=== PATIENT | male | born 1975 | race Caucasian/White ===

== ENCOUNTER 2025-09-03 07:12 | Emergency (ER) | payer BC, SELFPAY ==
[2025-09-03] VITALS (30 sets, daily range): BP systolic 142–192; BP diastolic 93–116; PULSE 54–63; TEMP 36.7; O2SAT 96–99; BMI 32.1
--- NOTE | 2025-09-03 07:22 | ED_ITS ---
HPI HPI - General Adult General Chief complaint: Headache Stated complaint: HEADACHE L ARM PAIN NOSE BLEED Time Seen by Provider: 09/03/25 07:19 Related Data Home Medications ?Medication ?Instructions ?Recorded ?Confirmed gabapentin 600 mg tablet 600 mg PO HS 09/03/25 Previous Rx's ?Medication ?Instructions ?Recorded amlodipine 5 mg tablet (Norvasc) 5 mg PO DAILY #30 tab s 09/03/25 Allergies Allergy/AdvReac Type Severity Reaction Status Date / Time No Known Drug Allergies Allergy Verified 09/03/25 07:19 Opioid HPI Opioid Management Most Recent Opioid Data: Last Pain Scale 5 Today, 08:05 Last ED Pain Assessment Today, 08:05 Last MAR Pain Assessment Today, 07:37 PFSH PFSH Social History Little interest or pleasure in doing things: not at all Feeling down, depressed, or hopeless: not at all Exam Constitutional Vital Signs, click to edit/add: Last Vital Signs Temp 98.1 F 09/03/25 07:20 Pulse 63 09/03/25 10:20 Resp 16 09/03/25 10:20 BP 142/93 H 09/03/25 10:15 Pulse Ox 97 09/03/25 10:20 O2 Del Method Room Air 09/03/25 08:05 Course Vital Signs Vital signs: Vital Signs Temperature 98.1 F 09/03/25 07:20 Pulse Rate 61 09/03/25 07:20 Respiratory Rate 16 09/03/25 07:20 Blood Pressure 182/108 H 09/03/25 07:20 Pulse Oximetry 98 09/03/25 07:20 Oxygen Delivery Method Room Air 09/03/25 07:20 Temperature 98.1 F 09/03/25 07:20 Pulse Rate 63 09/03/25 10:20 Respiratory Rate 16 09/03/25 10:20 Blood Pressure 142/93 H 09/03/25 10:15 Pulse Oximetry 97 09/03/25 10:20 Oxygen Delivery Method Room Air 09/03/25 08:05 Medical Decision Making MDM Narrative Medical decision making narrative: His workup is negative. The patient was given IV hydralazine, 10 mg twice, which resulted in good improvement of his blood pressure. He is discharged home on Norvasc and will follow-up promptly with his PCP for blood pressure recheck. Treatment diagnosis and follow-up were discussed with the patient and his . Differential Diagnosis Differential Diagnosis: Hypertension, renal failure Lab Data Lab results reviewed: Yes I reviewed the patient's lab results Labs: Lab Results 09/03/25 Range/Units 07:30 WBC 6.3 (4.0-11.0) 10^3/uL RBC 4.90 (4.70-6.10) 10^6/uL Hgb 15.4 (14.0-18.0) g/dL Hct 42.8 (42.0-54.0) % MCV 87.3 (80.0-94.0) fL MCH 31.4 (25.9-34.0) pg MCHC 36.0 H (29.9-35.2) g/dL RDW 12.4 (11.0-15.0) % Plt Count 256 (150-450) 10^3/uL MPV 10.0 (9.5-13.5) fL Neut % (Auto) 60.6 (43.0-75.0) % Lymph % (Auto) 26.8 (20.5-60.0) % [place] % (Auto) 10.2 (1.7-12.0) % Eos % (Auto) 1.9 (0.9-7.0) % Baso % (Auto) 0.3 (0.2-2.0) % Neut # (Auto) 3.8 (1.4-6.5) 10^3/uL Lymph # (Auto) 1.7 (1.2-3.8) 10^3/uL [place] # (Auto) 0.6 (0.3-0.8) 10^3/uL Eos # (Auto) 0.1 (0.0-0.7) 10^3/uL Baso # (Auto) 0.0 (0.0-0.1) 10^3/uL Abs Immat Gran (auto) 0.01 (0.00-0.03) 10^3/uL Imm/Tot Granulo (auto) 0.2 (0.0-0.5) % Sodium 142 (136-145) mmol/L Potassium 4.0 (3.5-5.1) mmol/L Chloride 106 (98-107) mmol/L Carbon Dioxide 26.4 (21.0-32.0) mmol/L Anion Gap 13.6 BUN 18.0 (7.0-18.0) mg/dL Creatinine 1.13 (0.70-1.30) mg/dL Est GFR ( Amer) >60 (>=60 mL/min/1.73m^2) Est GFR (Non-Af Amer) >60 (>=60 mL/min/1.73m^2) BUN/Creatinine Ratio 15.9 Glucose 111 H (74-106) mg/dL Calcium 8.7 (8.5-10.1) mg/dL ECG Data Attestation: I personally reviewed and interpreted this ECG as follows: (EKG on my interpretation shows sinus rhythm with rate 59 and no acute change.) Critical Care Time Critical Care Time Critical Care Time: Yes Total Critical Care Time: 35 Attestation: Due to the high probability of sudden and clinically significant deterioration in the patient's condition he/she required the highest level of my preparedness to intervene urgently I provided critical care time including documentation time, medication orders and management, reevaluation, vital sign assessment, ordering and reviewing of lab tests, ordering and reviewing of x-ray studies, and admission orders. Aggregate critical care time is 35 minutes including only time during which I was engaged in work directly related to his/her care and did not include time spent treating other patients simultaneously. Discharge Plan Discharge Chief Complaint: Headache Clinical Impression: Hypertension Patient Disposition: Home, Self-Care Time of Disposition Decision: 10:37 Condition: Good Mode of Transportation: Private Vehicle Prescriptions / Home Meds: New amlodipine [Norvasc] 5 mg tablet 5 mg PO DAILY Qty: 30 0RF No Action gabapentin 600 mg tablet 600 mg PO HS Print Language: Slovak Instructions: Hypertension (ED) Additional Instructions: Follow-up promptly with your PCP for blood pressure recheck. Referrals: ALEXIS CHRISTIANSON [Primary Care Provider, Family Practice] - 1 week
--- NOTE | 2025-09-03 07:30 | ECG_ITS ---
[facility] Test Date: 2025-09-03 Pat Name: Raul Machado Department: Room: - Gender: Male Rig Supervisor: : 1975 Requested By: Order Number: [id number] Reading MD: ALEXIS ANDRE Measurements Intervals [place] Rate: 59 P: 46 PA: 160 QRS: 7 QRSD: 94 T: 27 QT: 418 QTc: 418 Interpretive Statements 1100 Sinus rhythm 4068 Nonspecific Twave abnormality 9130 borderline ECG No previous ECG available for comparison Electronically Signed On 09-03-2025 15:19:46 EST by ALEXIS ANDRE
[2025-09-03] MEDS: KETOROLAC TROMETHAMINE 30 MG/ML VIAL IVP (07:37)
[2025-09-03 07:48] LABS: Hematocrit 42.8 % (42.0-54.0); Hemoglobin 15.4 g/dL (14.0-18.0); Immature Granulocytes Abs Auto 0.01 10^3/uL (0.00-0.03); Immature Granulocytes Pct Auto 0.2 % (0.0-0.5); Lymphocytes Absolute Auto 1.7 10^3/uL (1.2-3.8); Mean Corpuscular HGB Conc 36.0 g/dL (29.9-35.2); Mean Corpuscular Hemoglobin 31.4 pg (25.9-34.0); Mean Corpuscular Volume 87.3 fL (80.0-94.0); Platelet Count 256 10^3/uL (150-450); Red Blood Count 4.90 10^6/uL (4.70-6.10); White Blood Count 6.3 10^3/uL (4.0-11.0)
[2025-09-03] MEDS: HYDRALAZINE HCL 20 MG/ML VIAL 10 MG IVP ×2 (07:56→09:42)
--- OUTSIDE RECORDS SUMMARY | 2025-09-03 07:59 | XMS_ITS | Clinical Summary ---
Author Organization [facility] Healthcare Address [address] [place] [address] Care Team Providers Care Fisher Trawl Line Name Role Phone Eamon Acevedo DO Primary Care Provider [phone] Eamon Young DO Unavailable [phone] Allergies No known active allergies Medications MedicationSigDispense QuantityRefillsLast FilledStart DateEnd DateStatus gabapentin (Neurontin) 600 MG tablet Take 600 mg by mouth at vuvtwtf6105/01/2024ctive cephalexin (Keflex) 500 MG capsule Indications:Basal cell carcinoma (BCC) of right foreheadTake 1 capsule, by mouth, bid, 10 days 20 capsule 07/25/2024ctive Active Problems ProblemNoted DateDiagnosed DateImpairment of pnynyqu57/16/2024Primary insomnia 05/25/20242869Ducafupxttnb47/26/2019Obesity, Class I, BMI 30-34.9007/05/2019 Herniation of intervertebral disc of lumbar spine06/13/2019 Overview (05/25/2024): Added automatically from request for surgery [id number] Social History Tobacco UseTypesPacks/DayYears UsedDateSmoking Tobacco: NeverSmokeless Tobacco: Never Tobacco Cessation:Counseling Given: Not Answered Alcohol UseStandard Drinks/WeekCommentsYes0 (1 standard drink = 0.6 oz pure alcohol)Sex and Gender InformationValueDate RecordedSex Assigned at BirthNot on fileLegal IdoJqin6412/22/2022 6:36 PM EDTGender IdentityNot on fileSexual OrientationNot on file Last Filed Vital Signs Vital SignReadingTime TakenCommentsBlood Bdfplpxo252/9010 9:03 AM EDT Yrcmm626805/25/2024 2:52 PM EDTTemperature--Respiratory Rate--Oxygen Tezrecrtcv54% 05/25/2024 2:52 PM EDTInhaled Oxygen Concentration--Jbplnm109 kg (237 lb) 08/07/2024 2:40 PM WRARizqlq141.3 cm (5' 11 )08/07/2024 2:40 PM EDTBody Mass Index33.0508/07/2024 2:40 PM EDT Plan of Treatment DateTypeDepartmentCare Team (Latest Contact Info)Ryldhiigtel18/25/2025 11:00 AM ESTOffice Visit [facility] [address] [place] [phone] Eamon Acevedo DO [address] [place], [place] [id number] 12/05/2025 4:00 PM ESTOffice Visit [facility] [address] [place] [address] Radha Baltazar MD [address] [place], [place] [id number] Health MaintenanceDue DateLast DoneCommentsCT Uzileunuatlq1976FIT-DNA 1975FIT1975FOBT1975 5647Gofjknqzslfwu1976COVID-19 Vaccine ( season)5001/20/2021, 12/30/2020Influenza Vaccine (#1) 5544Shbbnuelvxe69, 08/03/2019Colorectal Cancer Screening 08/03/2029Pneumococcal Vaccine: Pediatrics (0 to 5 Years) and At-Risk Patients (6 to 64 Years)Aged OutNo longer eligible based on patient's age to complete this topic Insurance Care Teams Team MemberRelationshipSpecialtyStart DateEnd Date Eamon Acevedo DO [address] [place] [address] PCP - GeneralFamily Medicine02/15/23 Eamon Young DO [address] [place] [address] Iudcyowqjfnwkf39/17/24
--- OUTSIDE RECORDS SUMMARY | 2025-09-03 07:59 | XMS_ITS | Clinical Summary ---
Author Organization [facility] tem Address [facility] [id number] [address] [place] [address] Care Team Providers Care Supervisor Tunnel Heading Name Role Phone Eamon Acevedo DO Primary Care Provider [phone] Allergies No known active allergies Medications MedicationSigDispense QuantityRefillsLast FilledStart DateEnd DateStatus oxyCODONE (OXY-IR) 5 mg capsule Take 5 mg by mouth every 6 (six) hours as needed for pain.Active ibuprofen (ADVIL,MOTRIN) 800 mg tablet Take 1 tablet (800 mg total) by mouth every 8 (eight) hours as needed for pain. 30 tablet 6110/21/2018Active Active Problems ProblemNoted DateDiagnosed DateDisplacement of lumbar intervertebral disc 06/13/2019 Overview (06/13/2019): Added automatically from request for surgery [id number] Lumbosacral disc vtpmlfzofx80/04/2019 Overview (06/13/2019): Added automatically from request for surgery [id number] Social History Tobacco UseTypesPacks/DayYears UsedDateSmoking Tobacco: NeverSmokeless Tobacco: NeverAlcohol UseStandard Drinks/WeekCommentsYes1 (1 standard drink = 0.6 oz pure alcohol)ChildcareAnswerDate UxrfhdqpFjcrqsujbZsxgeyb87/09/2019EmploymentAnswer Date TnmdldvzEkzltealpmTwvqfmp11/09/2019Purpose - LifeAnswerDate RecordedPurpose and direction in fyekYybzdrz57/11/2021Sex and Gender InformationValueDate RecordedSex Assigned at BirthNot on fileLegal DmhBmhm7905/18/2019 2:21 PM EDT Gender IdentityNot on fileSexual OrientationNot on file Last Filed Vital Signs Vital SignReadingTime TakenCommentsBlood Xklzvctn794/9008/21/2019 10:28 AM EST Xcign792208/21/2019 10:28 AM ZHKAvayvybrndt93.4 ??C (97.6 ??F)06/22/2019 7:11 AM EDTRespiratory Kaoh732510/21/2018 10:28 AM ESTOxygen Dcnmjobskq605%06/22/2019 7:50 AM EDTInhaled Oxygen Concentration--Wqzpvn151 kg (227 lb)07/11/2019 8:07 AM EDT Ethldt345.3 cm (5' 11 )07/11/2019 8:07 AM EDTBody Mass Index31.6607/11/2019 8:07 AM EDT Plan of Treatment Health MaintenanceDue DateLast DoneCommentsDepression Jknpjicpl59/14/1988Tobacco Zwxrmuwrp48/14/1988Adult BMI Cypnphaur56/14/1994DTaP,Tdap and Td Vaccines (1 - Tdap)02/20/1995Influenza Oyafqnj9906/10/2025 Medical Devices Not on file Insurance Care Teams Team MemberRelationshipSpecialtyStart DateEnd Date Eamon Acevedo DO [address] [place] [address] PCP - GeneralFamily Bjiycfnh36/2/19
--- OUTSIDE RECORDS SUMMARY | 2025-09-03 07:59 | XMS_ITS | Clinical Summary ---
Author Organization [facility] Address [address] [place] [id number] Care Team Providers Care Quotation Clerk Name Role Phone Eamon Acevedo DO Primary Care Provider [phone] Allergies No known active allergies Medications MedicationSigDispense QuantityRefillsLast FilledStart DateEnd DateStatus gabapentin (NEURONTIN) 600 mg tablet Indications:Chronic left-sided low back pain with left-sided sciaticaTake 1 tablet by mouth daily at bedtime. 30 tablet 11011/06/0721576Active Active Problems ProblemNoted DateDiagnosed CfnhJrzmrwqltmmc78/26/2019Obesity, Class I, BMI 30-34.9007/05/2019 Social History Tobacco UseTypesPacks/DayYears UsedDateSmoking Tobacco: NeverSmokeless Tobacco: NeverPHQ-2AnswerDate RecordedPHQ-2 gyyhk3425Area Deprivation IndexAnswer Date RecordedNational Score (1-100), lower number is lower ahvx800110/17/2023State Score (1-10), lower number is lower yasy6014Data from: https://www.neighborhoodatlas.medicine.[facility].edu/. Last address used for [address] [facility]10/17/2023Sex and Gender InformationValueDate Recorded Sex Assigned at BirthNot on fileLegal WpgOphg7606/26/2019 7:48 AM EDTGender IdentityNot on fileSexual OrientationNot on file Last Filed Vital Signs Vital SignReadingTime TakenCommentsBlood Fxyoswgb556/9108 10:55 AM EDT Lwsza962806/04/2021 10:55 AM ZAHUbaqrciyquy32.6 ??C (97.9 ??F)07/05/2019 1:58 PM EDTRespiratory Sgga360506/04/2021 10:55 AM EDTOxygen Iwegrpqhhm53%07/05/2019 1:58 PM EDTInhaled Oxygen Concentration--Vckxnh710 kg (236 lb)06/04/2021 10:55 AM EDT Oqwwed899.3 cm (5' 11 )06/04/2021 10:55 AM EDTBody Mass Index32.9206/04/2021 10:55 AM EDT Plan of Treatment Health MaintenanceDue DateLast DoneCommentsAnxiety Cglzwdupq94/14/1994Depression Afzvejeuo74/14/1994HIV Krxxdokkb75/14/1994Hepatitis C Qdqpemlmx54/14/1994 DTaP,Tdap,Td Vaccine (1 - Tdap)02/20/1995Hepatitis B Vaccine (1 of 3 - 19+ 3- dose series)02/20/1995Lipid Xlkwgwgsh28/14/2011CT Tphafeajlixc73/14/2021 Cologuard (FIT-DNA)02/20/20214398Dmbaoohdiqi96Colorectal Cancer Jpytqdwdl66/14/2021Fecal Occult Blood02/20/20217492Ievvisagkjzzm72/14/2021Diabetes Nbyifgyup67Covid-19 Vaccine ( season)2025 01/20/2021, 12/30/2020Influenza Vaccine (#1)2025 Procedures Procedure NamePriorityDate/TimeAssociated DiagnosisCommentsCOLONOSCOPY - SPOFEXUVNSPfubujg65/25/2019 1:25 PM EDT Hematochezia COMPREHENSIVE METABOLIC AMPFUAquetwe36/26/2019 4:40 PM EDT Hematochezia from Last 3 Months or Most Recently Relevant to Health Maintenance Results * COLONOSCOPY - DIAGNOSTIC (08/03/2019 1:25 PM EDT)ComponentValueRef RangeTest MethodAnalysis TimePerformed AtPathologist SyvonllvgNrutyajsolnflS90 Gastrointestinal Endoscopy Patient Name: Raul Machado Procedure Date: 08/03/2019 1:25 PM Date of : 1975 Admit Type: Outpatient Age: 44 Room: A31 Procedure 7 (A3-133) Gender: Male Note Status: Finalized Attending MD: Mitch Basurto MD Sedation Initiated: 1335 PM Procedure: ?Colonoscopy Indications: ?Hematochezia Providers: ?Mitch Basurto MD Patient Profile: ?This is a 44 year old male. Refer to note in patient ?chart for documentation of history and physical. ?Last Colonoscopy: none. The patient's first ?colonoscopy is today. Referring Physician: Medicines: ?Midazolam 4 mg IV, Fentanyl 75 micrograms IV Complications: ?No immediate complications. Requesting Provider: Procedure: ?Pre-Anesthesia Assessment: ?- Prior to the procedure, a History and Physical was ?performed, and patient medications and allergies ?were reviewed. The patient is competent. The risks ?and benefits of the procedure and the sedation ?options and risks were discussed with the patient. ?All questions were answered and informed consent was ?obtained. Patient identification and proposed ?procedure were verified by the physician in the ?pre-procedure area. Mental Status Examination: alert ?and oriented. Airway Examination: normal ?oropharyngeal airway and neck mobility. Respiratory ?Examination: clear to auscultation. CV Examination: ?normal. Prophylactic Antibiotics: The patient does ?not require prophylactic antibiotics. Prior ?Anticoagulants: The patient has taken no previous ?anticoagulant or antiplatelet agents. ASA Grade ?Assessment: II - A patient with mild systemic ?disease. After reviewing the risks and benefits, the ?patient was deemed in satisfactory condition to ?undergo the procedure. The anesthesia plan was to ?use moderate sedation / analgesia (conscious ?sedation). Immediately prior to administration of ?medications, the patient was re-assessed for ?adequacy to receive sedatives. The heart rate, ?respiratory rate, oxygen saturations, blood ?pressure, adequacy of pulmonary ventilation, and ?response to care were monitored throughout the ?procedure. The physical status of the patient was ?re-assessed after the procedure. ?After I obtained informed consent, the scope was ?passed under direct vision. Throughout the ?procedure, the patient's blood pressure, pulse, and ?oxygen saturations were monitored continuously. The ?Colonoscope was introduced through the anus and ?advanced to the terminal ileum. The colonoscopy was ?performed without difficulty. The patient tolerated ?the procedure well. The quality of the bowel ?preparation was excellent. The terminal ileum, ?ileocecal valve, appendiceal orifice, and rectum ?were photographed. Moderate Sedation: Findings: ? Hemorrhoids were found on perianal exam. ? The colon (entire examined portion) appeared normal. ? The terminal ileum appeared normal. Impression: ? - Hemorrhoids found on perianal exam. ?- The entire examined colon is normal. ?- The examined portion of the ileum was normal. Estimated Blood Loss: Estimated blood loss: none. Recommendation: ? - Discharge patient to home (ambulatory). ?- Resume previous diet. ?- Use original regular Metamucil one teaspoon PO ?daily. ?- Can use topical treatments for hemorrhoids as ?needed - Rectiv too expensive. Will try nifedipine. ?- Repeat colonoscopy in 10 years for screening ?purposes. ?- Return to my office as previously scheduled. ?- Patient has a contact number available for ?emergencies. The signs and symptoms of potential ?delayed complications were discussed with the ?patient. Return to normal activities tomorrow. ?Written discharge instructions were provided to the ?patient. ?- Continue present medications. Procedure Code(s): ?--- Professional --- ?70199, Colonoscopy, flexible; diagnostic, including ?collection of specimen(s) by brushing or washing, ?when performed (separate procedure) CPT copyright 2018 [employer]. All rights reserved. The codes documented in this report are preliminary and upon roll threader operator review may be revised to meet current compliance requirements. Attending Participation: ? I personally performed the entire procedure. Scope In: 1:41:34 PM Scope Out: 1:57:14 PM MD Mitch Bob MD 08/03/2019 2:04:39 PM This report has been signed electronically by Mitch Basurto MD Number of Addenda: 0 Note Initiated On: 08/03/2019 1:25 PMDIGESTIVE DISEASE INSTITUTEAnatomical RegionLateralityModalityOtherSpecimen (Source)Anatomical Location / Laterality Collection Method / VolumeCollection TimeReceived Time08/03/2019 1:25 PM EDT Narrative Authorizing ProviderResult TypeResult StatusBenjapartha Basurto MDDIGESTIVE DISEASE Final Result * (ABNORMAL) COMP METABOLIC PANEL (07/05/2019 4:40 PM EDT)ComponentValueRef RangeTest MethodAnalysis TimePerformed AtPathologist SignatureProtein, Total 7.96.3 - 8.0 g/dL07/05/2019 7:52 PM EDTCleveland Clinic LaboratoriesAlbumin5.2 (H)3.9 - 4.9 g/dL07/05/2019 7:52 PM EDTCleveland Clinic LaboratoriesCalcium9.7 8.5 - 10.2 mg/dL07/05/2019 7:52 PM EDTCleveland Clinic LaboratoriesBilirubin, Total1.20.2 - 1.3 mg/dL07/05/2019 7:52 PM [facility] Alkaline Xkcudeqfqxq4474 - 113 U/L07/05/2019 7:52 PM [facility] JewkqalzvsxcAGT8323 - 40 U/L07/05/2019 7:52 PM [facility] SneokbjdemmkIuohtns0751 - 99 mg/dL07/05/2019 7:52 PM [facility] LaboratoriesComment: The [place] [employer] (ADA) provides guidance for cutoff values for fasting glucose and random glucose. The ADA defines fasting as no caloric intake for at least 8 hours. Fasting plasma glucose results between 100 to 125 mg/dL indicate increased risk for diabetes (prediabetes). Fasting plasma glucose results greater than or equal to 126 mg/dL meet the criteria for diagnosis of diabetes. In the absence of unequivocal hyperglycemia, results should be confirmed by repeat testing. In a patient with classic symptoms of hyperglycemia or hyperglycemic crisis, random plasma glucose results greater than or equal to 200 mg/dL meet the criteria for diagnosis of diabetes. Reference: Standards of Medical Care in Diabetes 2016, [place] [employer]. Diabetes Care. 2016.39(Suppl 1). SIB776 - 24 mg/dL07/05/2019 7:52 PM [facility] LaboratoriesCreatinine 1.160.73 - 1.22 mg/dL07/05/2019 7:52 PM [facility] LaboratoriesSodium 978739 - 144 mmol/L07/05/2019 7:52 PM [facility] LaboratoriesPotassium 4.53.7 - 5.1 mmol/L07/05/2019 7:52 PM [facility] LaboratoriesChloride 56203 - 105 mmol/L07/05/2019 7:52 PM [facility] ZxcgckrkrqflIZ95002 - 30 mmol/L07/05/2019 7:52 PM [facility] LaboratoriesAnion Ngw648 - 18 mmol/L07/05/2019 7:52 PM [facility] OuhzwlmvdrxeTLR1473 - 54 U/L 07/05/2019 7:52 PM [facility] LaboratorieseGFR->60 07/05/2019 7:52 PM [facility] LaboratorieseGFR-All Other Races>60. 07/05/2019 7:52 PM EDTCleveland Clinic LaboratoriesComment: eGFR (Estimated GFR) Units of measure: mL/min/1.73 meters squared eGFR is derived from the reexpressed MDRD Study equation using the following parameters: serum creatinine, age, gender and race. The creatinine assay has been calibrated to be traceable to IDMS. An eGFR <60 mL/min/1.73m2 for >3 months is consistent with chronic kidney disease. Refer to KDOQI guidelines for clinical interpretation. In patients with unstable renal function, e.g. those with acute kidney injury, the eGFR may not accurately reflect actual GFR. Specimen (Source)Anatomical Location / LateralityCollection Method / Volume Collection TimeReceived TimeBlood specimen (specimen)BLOOD SPECIMEN / Unknown 07/05/2019 4:40 PM EDT07/05/2019 4:42 PM EDT Narrative Authorizing ProviderResult TypeResult StatusBenjamin Click MDLABORATORYFinal ResultPerforming OrganizationAddressCity/State/ZIP CodePhone Number [facility] [address] [place] [address] [facility] [address] [place] [address] from Last 3 Months or Most Recently Relevant to Health Maintenance Insurance Care Teams Team MemberRelationshipSpecialtyStart DateEnd Date Eamon Acevedo DO [address] [place] [address] PCP - GeneralFamily Dasdawip37/25/19
[2025-09-03 08:04] LABS: Anion Gap 13.6; Blood Urea Nitrogen 18.0 mg/dL (7.0-18.0); Calcium 8.7 mg/dL (8.5-10.1); Carbon Dioxide 26.4 mmol/L (21.0-32.0); Chloride 106 mmol/L (98-107); Estimated GFR (African America >60 (>=60 mL/min/1.73m^2); Estimated GFR (Non-African Ame >60 (>=60 mL/min/1.73m^2); Glucose 111 mg/dL (74-106); Potassium 4.0 mmol/L (3.5-5.1); Sodium 142 mmol/L (136-145)
== END 2025-09-03 10:51 | disposition home or self-care (01) ==
PROVIDERS: Emergency Provider Emergency Medicine; PCP Family Medicine
DX: I10 Essential (primary) hypertension (principal)
CPT/HCPCS: 36415; 80048; 85025; 93005; 96374; 96375; 96376; 99284; J0360; J1885